=== PATIENT | male | born 1995 | race Caucasian/White ===

== ENCOUNTER 2016-04-11 22:37 | Emergency (ER) | payer OTHER ==
[~2016-04-11] VITALS: Ht 175.3 cm; Wt 63.5 kg
--- OUTSIDE RECORDS SUMMARY | 2016-04-11 22:45 | XMS REPORT | Continuity of Care Document ---
Author Author [facility] Organization [facility] Address Unknown Phone Unavailable Care Team Providers Care Hostage Negotiator Name Role Phone PCP Unavailable Source Comments Some departments are not documenting in the electronic medical record. If you do not see the information that you expected, contact Release of Information in the Health Information Management department at [phone] for further assistance in locating additional records.[facility] Active Allergies and Adverse Reactions No Known Allergies Current Medications Not on file Active Problems Not on file Social History Tobacco Use Types Packs/Day Years Used Date Never Assessed Plan of Care Health Maintenance Due Date Last Done Comments Physical (Comprehensive) 2002 Exam Hpv Vaccines (#1) 2006 Pertussis Vaccine 2006 Tetanus Vaccine 2012 Influenza Vaccine 11/13/2015 Results from Last 3 Months Not on file
[2016-04-11 23:10] LABS: BASOPHILS % (AUTO) 0 % (0-10); EOSINOPHILS # (AUTO) 0.1 10^3/uL (0.0-0.3); EOSINOPHILS % (AUTO) 1 % (0-10); LYMPHOCYTES # (AUTO) 2.9 X 10^3 (1.0-4.0); LYMPHOCYTES % (AUTO) 37 % (12-44); MEAN CORPUSCULAR HEMOGLOBIN 32 PG (25-34); MEAN CORPUSCULAR HGB CONC 37 G/DL (32-36); MEAN CORPUSCULAR VOLUME 84 FL (80-99); MEAN PLATELET VOLUME 9.3 FL (7.4-10.4); MONOCYTES # (AUTO) 0.8 X 10^3 (0.0-1.0); MONOCYTES % (AUTO) 10 % (0-12); NEUTROPHILS # (AUTO) 4.1 X 10^3 (1.8-7.8); NEUTROPHILS % (AUTO) 52 % (42-75); PLATELET COUNT 340 10^3/uL (130-400); RED BLOOD COUNT 5.05 10^6/uL (4.35-5.85); RED CELL DISTRIBUTION WIDTH 12.4 % (10.0-14.5)
[2016-04-11 23:28] LABS: ALANINE AMINOTRANSFERASE 14 U/L (0-55); ALBUMIN 4.8 G/DL (3.2-4.5); ANION GAP 11 MMOL/L (5-14); ASPARTATE AMINO TRANSFERASE 18 U/L (5-34); BILIRUBIN,TOTAL 0.5 MG/DL (0.1-1.0); BLOOD UREA NITROGEN 18 MG/DL (7-18); BUN/CREATININE RATIO 16; CALCIUM 9.2 MG/DL (8.5-10.1); CARBON DIOXIDE 25 MMOL/L (21-32); CHLORIDE 104 MMOL/L (98-107); GFR ESTIMATED > 60; GLUCOSE 88 MG/DL (70-105); MAGNESIUM 2.7 MG/DL (1.8-2.4); POTASSIUM 3.9 MMOL/L (3.6-5.0); SODIUM 140 MMOL/L (135-145)
[2016-04-11 23:32] LABS: ALCOHOL < 10 MG/DL (<10)
[2016-04-11 23:48] LABS: TROPONIN I < 0.30 NG/ML (<0.30)
--- NOTE | 2016-04-12 00:54 | ED General ---
General Chief Complaint: Psych/Social Disorder Stated Complaint: HEART RACING, FAINT Nursing Triage Note: reports taking vyvanse/cannibus 04/04/16 and having intermittant "heart racing" for 5-10 minutes since. pt reports being seen at [facility] for same. Nursing Sepsis Screen: No Definite Risk Source of Information: Patient Exam Limitations: No Limitations History of Present Illness Time Seen by Provider: 22:58 Initial Comments This 21-year-old gentleman presents to the emergency room with complaints of feeling lightheaded and having palpitations. The symptoms occurred while he was sitting in bed. He got up and stumbled a bit with disequilibrium. He had similar symptoms about one week ago. Prior to that he had gone out drinking for his 21st birthday. The next day he smoked marijuana and took Vyvanse which is not prescribed to him and he does not usually take. He developed significant hypertension as measured at home with his systolic blood pressure greater than 200. He presented to an outside ER and was hydrated and underwent a cardiac evaluation. Over the past week he has had intermittent palpitations. He reports his vision has occasionally been "a little off". After his visit to the outside ER one week ago he quit chewing tobacco. He denies any further use of marijuana or alcohol since that time. He denies any dyspnea. He has had some mild sternal chest pain tender to palpation. He denies any pain at present. He has experienced paresthesias in his extremities during these episodes. He is presently being treated for thrush. Allergies and Home Medications Allergies Coded Allergies: No Known Drug Allergies (Unverified , 04/11/16) Home Medications No Active Prescriptions or Reported Meds Constitutional: no symptoms reported EENTM: see HPI Respiratory: no symptoms reported Cardiovascular: see HPI Gastrointestinal: no symptoms reported Genitourinary: no symptoms reported Musculoskeletal: no symptoms reported Skin: no symptoms reported Psychiatric/Neurological: See HPI Hematologic/Lymphatic: No Symptoms Reported Past Xpmjsms-Sfgljp-Rqhmpa Hx Patient Social History Alcohol Use: Occasionally Uses Recreational Drug Use: Yes Drug of Choice: cannibus vyvanse Smoking Status: Never a Smoker Type Used: Smokeless Tobacco Recent Foreign Travel: No Contact w/Someone Who Travel: No Recent Infectious Disease Expo: No Recent Hopitalizations: No Physical Abuse Screen: No Sexual Abuse: No Immunizations Up To Date Tetanus Booster (TDap): Less than 5yrs PED Vaccines UTD: Yes Seasonal Allergies Seasonal Allergies: No Surgeries HX Surgeries: Yes (hernia repair) Respiratory Hx Respiratory Disorders: Yes Respiratory Disorders: Asthma Cardiovascular Hx Cardiac Disorders: No Neurological Hx Neurological Disorders: No Reproductive System Hx Reproductive Disorders: No Genitourinary Hx Genitourinary Disorders: No Gastrointestinal Hx Gastrointestinal Disorders: No (repaired) Gastrointestinal Disorders: Hiatal Hernia Musculoskeletal Hx Musculoskeletal Disorders: No HEENT HX ENT Disorders: Yes (thrush) Cancer Hx Cancer: No Psychosocial Hx Psychiatric Problems: No Integumentary HX Skin/Integumentary Disorder: No Blood Transfusions Hx Blood Disorders: No Physical Exam Vital Signs Vital Sign - Last 12Hours 04/11/16 22:47 Temp 97.8 Pulse 94 Resp 18 B/P 164/96 Pulse Ox 100 O2 Delivery Room Air Capillary Refill : Less Than 3 Seconds General Appearance: No Apparent Distress WD/WN HEENT: PERRL/EOMI TMs Normal Normal ENT Inspection Pharynx Normal Neck: Normal Inspection Respiratory: Chest Non Tender Lungs Clear Normal Breath Sounds No Accessory Muscle Use No Respiratory Distress Cardiovascular: Regular Rate, Rhythm No Edema No Murmur Gastrointestinal: Normal Bowel Sounds Non Tender Soft Back: Normal Inspection Extremity: Normal Inspection No Calf Tenderness No Pedal Edema Neurologic/Psychiatric: Alert Oriented x3 No Motor/Sensory Deficits Normal 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30 MG/DL Eosinophils # (Auto) 0.1 0.0-0.3 10^3/uL Eosinophils (%) (Auto) 1 0-10 % Estimat Glomerular Filtration Rate > 60 Glucose Level 88 70-105 MG/DL Hematocrit 43 40-54 % Hemoglobin 15.9 13.3-17.7 G/DL Lymphocytes # (Auto) 2.9 1.0-4.0 X 10^3 Lymphocytes (%) (Auto) 37 12-44 % Magnesium Level 2.7 H 1.8-2.4 MG/DL Mean Corpuscular Hemoglobin 32 25-34 PG Mean Corpuscular Hemoglobin Concent 37 H 32-36 G/DL Mean Corpuscular Volume 84 80-99 FL Mean Platelet Volume 9.3 7.4-10.4 FL Monocytes # (Auto) 0.8 0.0-1.0 X 10^3 Monocytes (%) (Auto) 10 0-12 % Neutrophils # (Auto) 4.1 1.8-7.8 X 10^3 Neutrophils (%) (Auto) 52 42-75 % Platelet Count 340 130-400 10^3/uL Potassium Level 3.9 3.6-5.0 MMOL/L Red Blood Count 5.05 4.35-5.85 10^6/uL Red Cell Distribution Width 12.4 10.0-14.5 % Serum Alcohol < 10 <10 MG/DL Sodium Level 140 135-145 MMOL/L TSH Traill Testing 2.42 0.35-4.94 UIU/ML Total Bilirubin 0.5 0.1-1.0 MG/DL Total Protein 7.0 6.4-8.2 G/DL Troponin I < 0.30 <0.30 NG/ML White Blood Count 8.0 4.3-11.0 10^3/uL Ur Tricyclic Antidepressants Screen NEGATIVE NEGATIVE Urine Amphetamines Screen NEGATIVE NEGATIVE Urine Barbiturates Screen NEGATIVE NEGATIVE Urine Benzodiazepines Screen NEGATIVE NEGATIVE Urine Cannabinoids Screen POSITIVE H NEGATIVE Urine Cocaine Screen NEGATIVE NEGATIVE Urine Methadone Screen NEGATIVE NEGATIVE Urine Methamphetamines Screen NEGATIVE NEGATIVE Urine Opiates Screen NEGATIVE NEGATIVE Urine Oxycodone Screen NEGATIVE NEGATIVE Urine Phencyclidine Screen NEGATIVE NEGATIVE Urine Propoxyphene Screen NEGATIVE NEGATIVE My Orders Orders-CONNIE NOBLE MD Alcohol (04/11/16 22:57) Cbc With Automated Diff (04/11/16 22:57) Comprehensive Metabolic Panel (04/11/16 22:57) Drug Screen Stat (Urine) (04/11/16 22:57) Magnesium (04/11/16 22:57) Thyroid Analyzer (04/11/16 22:57) Troponin I (04/11/16 22:57) Chest 1 View, Ap/Pa Only (04/11/16 22:57) Saline Lock/Iv-Start (04/11/16 22:57) Ekg Tracing (04/11/16 22:57) Monitor-Rhythm Ecg Trace Only (04/11/16 22:57) Vital Signs/I&O Vital Sign - Last 12Hours 04/11/16 04/12/16 22:47 01:00 Temp 97.8 97.1 Pulse 94 77 Resp 18 19 B/P 164/96 Pulse Ox 100 97 O2 Delivery Room Air Room Air Blood Pressure Mean: 118 ECG Initial ECG Impression Date: Apr 11, 2016 Initial ECG Impression Time: 23:11 Initial ECG Rate: 72 Initial ECG Rhythm: Normal Sinus Initial ECG Intervals: Normal Initial ECG Impression: Normal Comment Normal sinus rhythm with no ST elevation or depression. No abnormal intervals or axis deviation. Diagnostic Imaging Diagonstic Imaging: Xray Plain Films/CT/US/NM/MRI: chest Comments Chest x-ray viewed by me. Report not yet available. No acute abnormalities appreciated. Departure Impression Impression: Primary Impression: Palpitations Additional Impressions: Light headedness Nicotine withdrawal Disposition: 01 HOME, SELF-CARE Condition: Improved Departure-Patient Inst. Decision time for Depature: 00:40 Referrals: MARIUSZ LUO MD (PCP/Family) Primary Care Physician Patient Instructions: Palpitations Add. Discharge Instructions: Stay well-hydrated. Avoid use of mind altering substances such as marijuana or excessive alcohol. Follow-up with your primary care provider later this week. Return to care if symptoms worsen. All discharge instructions reviewed with patient and/or family. Voiced understanding. Scripts No Active Prescriptions or Reported Meds CONNIE NOBLE MD Apr 12, 2016 00:54
[2016-04-12 01:00] VITALS: BP 146/87
--- NOTE | 2016-04-12 07:10 | Diagnostic Imaging Report ---
INDICATION: Racing heart, pain FINDINGS: Frontal view of the chest demonstrates the lungs to be clear. The heart, mediastinum, pulmonary vascularity and visualized bony thorax are normal. IMPRESSION: Negative chest. Dictated by: Dictated on workstation # [id number]
== END 2016-04-12 00:57 | disposition home or self-care (01) ==
LOC: ER 22:40
DX: R00.2 Palpitations (principal); R42 Dizziness and giddiness; F12.10 Cannabis abuse, uncomplicated; F17.223 Nicotine dependence, chewing tobacco, with withdrawal
CPT/HCPCS: 36415; 71010; 80053; 80306; 80320; 83735; 84443; 84484; 85025; 93005; 93041

== ENCOUNTER → 2021-05-27 | Outpatient (CLI) | payer BC ==
--- NOTE | 2021-05-27 15:27 | Diagnostic Imaging Report ---
PROCEDURE: US scrotum. TECHNIQUE: Multiple real-time grayscale images were obtained over the scrotum in various projections, bilaterally. INDICATION: Right scrotal pain. FINDINGS: The right epididymis is enlarged, hypoechoic and hypervascularized consistent with epididymitis. Testicular parenchyma, bilaterally, appears normally perfused. The contralateral left epididymis normal. A small right hydrocele which appears simple. There is no hernia or varicocele. IMPRESSION: Findings most consistent with unilateral right-sided epididymitis but no features of orchitis or torsion. Small simple likely reactive right hydrocele with no evidence for abscess or pyocele. Dictated by: Dictated on workstation # [id number]
== END ==
LOC: RAD 14:00
PROVIDERS: ATTEND Nurse Practitioner Family
DX: N50.82 Scrotal pain (principal); N50.819 Testicular pain, unspecified
CPT/HCPCS: 76870

== ENCOUNTER 2021-12-11 08:03 | Outpatient (CLI) | payer BC ==
[~2021-12-11] VITALS: Ht 172.7 cm; Wt 77.2 kg
[2021-12-11] MEDS ORDERED: OMEP40CA6 PO (09:53)
== END 2021-12-11 10:08 | disposition home or self-care (01) ==
LOC: PREOP 08:03
PROVIDERS: ATTEND Surgery
DX: Z01.818 Encounter for other preprocedural examination (principal)

== ENCOUNTER 2021-12-16 10:23 | Day surgery (SDC) | payer BC ==
[2021-12-16] VITALS (10 sets, daily range): BP systolic 92–149; BP diastolic 50–91
[~2021-12-16] VITALS: Ht 176 cm; Wt 77.2 kg
[~2021-12-16 10:23] MED LIST: OMEP40CA6 PO
[2021-12-16] MEDS ORDERED: LACTATED RINGERS 1,000 ML IV STA (10:27)
[2021-12-16] MEDS ORDERED: LIDOCAINE JELLY 2% 6 ML SYRINGE MM PRN (10:30)
[2021-12-16] MEDS ORDERED: HURRICAINE EXT TUBE (BENZOCAINE) XX PRN (10:30)
[2021-12-16] MEDS ORDERED: MIDAZOLAM 5 MG/5 ML (VERSED) VIAL ONE (11:04)
[2021-12-16] MEDS ORDERED: PROPOFOL INJECTION 50 ML IV ONE ×2 (11:05→11:22)
--- NOTE | 2021-12-16 11:09 | Progress Note-Pre Operative ---
Pre-Operative Progress Note Date of Available H&P: Dec 16, 2021 Date H&P Reviewed: Dec 16, 2021 Time H&P Reviewed: 10:30 History & Physical: No changes noted Pre-Operative Diagnosis: GERD, rectal bleed SCAR VELASQUEZ MD Dec 16, 2021 11:09
--- NOTE | 2021-12-16 11:10 | Discharge Inst-Surgical ---
D/C Lap Instructions-EVA Follow Up Activity as tolerated High Fiber Diet 25g or more per day Avoid Alcohol, Caffeine, Spicy [place] and Acid foods. Drink 64 fluid oz or more of fluids per day. Symptoms to Report: Fever over 101 degree F, Nausea/Vomiting If any problems/questions: Contact your physician or go to Emergency Room SCAR VELASQUEZ MD Dec 16, 2021 11:10
[2021-12-16] MEDS ORDERED: ONDANSETRON 4 MG/2 ML (SDV) Z0FRAN IVP PRN (11:15)
[2021-12-16] MEDS ORDERED: ONDANSETRON 4 MG (ZOFRAN) ORAL DISSOLVE TAB PO PRN (11:15)
--- NOTE | 2021-12-16 11:58 | Progress Note-Post Operative ---
Post-Operative Progess Note Surgeon (s)/Produce Department Supervisor (s) Surgeon SCAR VELASQUEZ MD Produce Department Supervisor: none Pre-Operative Diagnosis GERD, rectal bleed Post-Operative Diagnosis reflux esophagitis(grade B), small HH(2cm), moderate gastritis. chronic stage 2 ext and int hemorrhoids. Procedure & Operative Findings Date of Procedure 12/16/21 Procedure Performed/Findings EGD with bx. Colonoscopy with bx. Anesthesia Type mac Estimated Blood Loss Estimated blood loss (mL): minimal Specimens/Packing Specimens Removed ge jxn, antrum, cecum, asc, desc colon, rectum SCAR VELASQUEZ MD Dec 16, 2021 11:58
--- NOTE | 2021-12-16 12:44 | Anesthesia-General Post-Op ---
MAC Patient Condition Mental Status/LOC: Same as Preop Cardiovascular: Satisfactory Nausea/Vomiting: Absent Respiratory: Satisfactory Pain: Controlled Complications: Absent Post Op Complications Complications None Follow Up Care/Instructions Patient Instructions None needed. Anesthesiology Discharge Order Discharge Order Patient is doing well, no complaints, stable vital signs, no apparent adverse anesthesia problems. No complications reported per nursing. ILIANA GAINES CRNA Dec 16, 2021 12:44
--- NOTE | 2021-12-16 22:13 | OPERATIVE REPORT ---
DATE OF SERVICE: 12/16/2021 ATTENDING PRIMARY CARE PHYSICIAN: Kapil Erickson MD PREOPERATIVE DIAGNOSES: Gastroesophageal reflux disease, rectal bleeding. POSTOPERATIVE DIAGNOSES: Reflux esophagitis, Meade grade B, small hiatal hernia 2 cm in size, moderate gastritis, chronic stage II external and internal hemorrhoids. Remainder of the rectum and colon were normal. PROCEDURE: EGD with biopsy, colonoscopy with biopsy. SURGEON: Scar Velasquez MD. ANESTHESIA: Monitored anesthesia care. ESTIMATED BLOOD LOSS: Minimal. FINDINGS: Same as postoperative diagnosis. DISPOSITION: The patient tolerated the procedure well. INDICATIONS: The patient is a 26-year-old male referred over to us for crampy abdominal pain; however, he has also had issues with gastroesophageal reflux disease and several episodes of blood per rectum. He reports the past 2 years, he has had issues with heartburn and reflux, which was even around as a child. He is currently on omeprazole, which has helped some of his symptoms. He does not report any hematemesis, no coffee ground emesis. He also reports that he does have intermittent episodes of red blood per rectum as well as associated crampy abdominal pain. He also reports that he will notice a small amount of mucousy stools on occasion as well. DESCRIPTION OF PROCEDURE: The patient was brought to the endoscopy suite, laid in left lateral decubitus position. After adequate IV pain and sedative medications and monitored anesthesia care, the mouthpiece was applied. The endoscope was placed in the mouth, visualized the pharynx and hypopharyngeal region. Vocal cords, epiglottis of likely identified and appeared to be normal. Endoscope was then gently intubated into the esophageal opening and esophagus insufflated. The endoscope was then advanced through the first, second and third portion of esophagus at the level of the GE junction, reflux esophagitis, Meade grade B identified. No ulcers or strictures identified and a biopsy was taken with forceps with visualization of good hemostasis. The endoscope was then advanced in the stomach and endoscope retroflexed, visualizing a small hiatal hernia approximately 2 cm in size. There was a moderate severity gastritis more towards the stomach antrum. No formal ulcerations, polyps, or any neoplasms. A biopsy was taken of the antrum to rule out H. pylori with visualization of good hemostasis. The endoscope was then advanced to the pylorus and the first and second portion of the duodenum, which appeared normal. The endoscope was then slowly withdrawn with taking a second look and suctioning of residual air with no additional findings. A digital rectal examination was performed, which did reveal chronic stage II external and internal hemorrhoids, not actively edematous nor inflamed and no bleeding. Normal sphincter tone was felt and there were no palpable masses. The endoscope was then intubated into the anus and rectum gently insufflated. The endoscope was then advanced to the valves of Dean of the rectum with no polyps or any neoplasms identified as well as no mucosal inflammatory changes. The endoscope was then advanced through the remainder of the sigmoid, descending, transverse and ascending colon to the cecum, which were normal. There were no lesions or any mucosal inflammatory changes. We then proceeded with random biopsies of the cecum, ascending colon, descending colon and rectum with forceps with visualization of good hemostasis. The patient tolerated the procedure well. We will recommend the necessary lifestyle and dietary accommodation, which would include avoidance of alcoholic and caffeinated beverages as well as avoidance of spicy, greasy and acidic foods and also take in small and more frequent meals and avoidance of eating at night. We will also start him on Protonix 40 mg daily to be taken at a different time of the day than his omeprazole for the next three months. We will also recommend incorporation of a high-fiber diet with a fiber supplement, which should equal or exceed 30 grams daily to promote soft stools on a daily basis. There were no mucosal inflammatory changes, or other signs that would indicate any inflammatory bowel disease at this time. Job ID: [id number] DocumentID: [id number] Dictated Date: 12/16/2021 11:52:00 Regional Director Of Finance Date: 12/16/2021 22:12:43 Dictated By: SCAR VELASQUEZ MD
== END 2021-12-16 13:00 | disposition home or self-care (01) ==
LOC: ENDO 10:23
PROVIDERS: ATTEND Surgery
DX: K21.00 Gastro-esophageal reflux disease with esophagitis, without bleeding (principal); K44.9 Diaphragmatic hernia without obstruction or gangrene; K64.1 Second degree hemorrhoids; K64.8 Other hemorrhoids; K29.70 Gastritis, unspecified, without bleeding; Z87.891 Personal history of nicotine dependence